=== PATIENT | male | born 1985 | race Caucasian/White ===

== ENCOUNTER 2017-09-12 10:21 | Emergency (ER) | payer SELFPAY | END 2017-09-12 11:41 | disposition home or self-care (01) | LOC: SCSER 10:21 | DX: J10.1 Influenza due to other identified influenza virus with other respiratory manifestations (principal) | CPT/HCPCS: 87081; 87430; 99283 ==

== ENCOUNTER 2017-10-03 09:43 | Emergency (ER) | payer SELFPAY ==
[2017-10-03] MEDS ORDERED: Ondansetron ODT 4 MG TAB ONE (09:58)
--- NOTE | 2017-10-03 10:12 | RAD ---
TWO VIEW CHEST: History: Cough. FINDINGS: Lungs are clear. No infiltrate. Heart and mediastinum unremarkable. Osseous structures are unremarkab le. IMPRESSION: Unremarkable chest. POS: [facility]
== END 2017-10-03 10:20 | disposition home or self-care (01) ==
LOC: SCSER 09:43
DX: J32.9 Chronic sinusitis, unspecified (principal)
CPT/HCPCS: 71046; Q0162